=== PATIENT | female | born 1990 | race African-American/Black ===

== ENCOUNTER 2022-01-28 04:30 | Emergency (ER) | payer MEDICARE ==
[~2022-01-28] VITALS: Ht 149.9 cm; Wt 44.0 kg
[2022-01-28 04:43] VITALS: BP 146/98
[2022-01-28] MEDS ORDERED: ONDANSETRON HCL 4MG/2ML INJ IM ONE (04:45)
[2022-01-28] MEDS ORDERED: ACETAMINOPHEN 500MG TABLET PO ONE (04:45)
[2022-01-28] MEDS ORDERED: LIDOCAINE HCL/PF 1% 10 MG/ML 5ML VIAL INFIL ONE (09:00)
[2022-01-28] MEDS ORDERED: TETANUS, DIPHTHERIA, PERTUSSIS VAC/PF 0.5ML (>10YR OLD) IM ONE (09:00)
[2022-01-28] MEDS ORDERED: ACETAMINOPHEN 500MG TABLET PO SCH (09:15)
[2022-01-28] MEDS ORDERED: LIDOCAINE HCL/PF 1% 10 MG/ML 5ML VIAL INFIL SCH (09:15)
[2022-01-28] MEDS ORDERED: ONDANSETRON HCL 4MG/2ML INJ IM SCH (09:15)
== END 2022-01-28 09:54 | disposition home or self-care (01) ==
LOC: ER 04:30
DX: S01.01XA Laceration without foreign body of scalp, initial encounter (principal); Y08.89XA Assault by other specified means, initial encounter; Y93.89 Activity, other specified; Y92.89 Other specified places as the place of occurrence of the external cause; Y99.8 Other external cause status; J45.909 Unspecified asthma, uncomplicated
CPT/HCPCS: 12001; 70450; 81025; 90471; 90715; 96372; 99284; J2405; J3490; Z7610